=== PATIENT | male | born 1955 | race Caucasian/White ===

== ENCOUNTER 2017-02-07 08:59 | Emergency (ER) | payer BC | END 2017-02-07 09:20 | disposition other institution (70) | LOC: ER 08:59 | DX: I21.19 ST elevation (STEMI) myocardial infarction involving other coronary artery of inferior wall (principal); I10 Essential (primary) hypertension; Z90.49 Acquired absence of other specified parts of digestive tract | CPT/HCPCS: 36415 ==

== ENCOUNTER 2017-03-12 23:46 | Emergency (ER) | payer BC | END 2017-03-13 03:10 | disposition home or self-care (01) | LOC: ER 23:46 | DX: M25.511 Pain in right shoulder (principal); M25.512 Pain in left shoulder; M54.6 Pain in thoracic spine; F32.9 Major depressive disorder, single episode, unspecified; F41.9 Anxiety disorder, unspecified; I10 Essential (primary) hypertension; E11.9 Type 2 diabetes mellitus without complications; Z90.49 Acquired absence of other specified parts of digestive tract; Z79.82 Long term (current) use of aspirin; Z79.899 Other long term (current) drug therapy; Z88.2 Allergy status to sulfonamides; Z95.1 Presence of aortocoronary bypass graft | CPT/HCPCS: 36415 ==